=== PATIENT | male | born 1965 | race Hispanic/Latino ===

== ENCOUNTER 2018-04-28 10:17 | Inpatient (IN) | payer OTHER ==
[2018-04-28] VITALS (7 sets, daily range): BP systolic 136–161; BP diastolic 78–105
[~2018-04-28] VITALS: Ht 162.6 cm; Wt 75.9 kg
[2018-04-28] MEDS ORDERED: ASPIRIN 325 MG TABLET ONE (10:19)
[2018-04-28 10:40] LABS: BASOPHILS % (AUTO) 0.7 % (0.0-5.0); EOSINOPHILS % (AUTO) 1.4 % (0.0-8.0); HEMATOCRIT 41.4 % (42-54); LYMPHOCYTES % (AUTO) 29.6 % (21.0-51.0); MEAN CORPUSCULAR HEMOGLOBIN 30.2 pg (27.0-33.0); MEAN CORPUSCULAR HGB CONC 34.6 g/dL (32.0-36.0); MEAN CORPUSCULAR VOLUME 87.3 fL (79-99); MONOCYTES % (AUTO) 4.4 % (3.0-13.0); NEUTROPHILS % (AUTO) 63.9 % (40.0-77.0); PLATELET COUNT (AUTO) 310 K/uL (130-400); RED BLOOD CELL COUNT(AUTO) 4.75 MIL/uL (4.50-6.20); WHITE BLOOD COUNT (AUTO) 7.4 K/uL (4.8-10.8)
[2018-04-28 11:01] LABS: CREATININE 0.8 mg/dL (0.5-1.5); POTASSIUM 3.4 mmol/L (3.5-5.1)
[2018-04-28 11:02] LABS: INR 0.95 (0.85-1.15)
[2018-04-28 11:12] LABS: ALBUMIN 3.1 g/dL (3.5-5.0); BILIRUBIN,TOTAL 0.5 mg/dL (0.2-1.0); TOTAL PROTEIN, SERUM 6.5 g/dL (6.0-8.3)
[2018-04-28 11:38] LABS: AMPHET/METH SCREEN,URINE NEGATIVE (NEGATIVE); BARBITURATE SCREEN, URINE NEGATIVE (NEGATIVE); BENZODIAZEPINES SCREEN,URINE NEGATIVE (NEGATIVE); CANNABINOID SCREEN,URINE NEGATIVE (NEGATIVE); COCAINE SCREEN,URINE NEGATIVE (NEGATIVE); OPIATE SCREEN,URINE NEGATIVE (NEGATIVE); PHENCYCLIDINE SCREEN,URINE NEGATIVE (NEGATIVE)
[2018-04-28] MEDS ORDERED: PHENYLEPHRINE HCL 10 MG/ML 1ML VIAL IV ONE (12:00)
[2018-04-28] MEDS ORDERED: HEPARIN SODIUM 10000 UNIT/ML 1ML VIAL IJ ONE (12:00)
[2018-04-28] MEDS ORDERED: NITROGLYCERIN 1GM/1 INCH PACKET TD ONE (13:34)
[2018-04-28] MEDS ORDERED: METOPROLOL TARTRATE 1 MG/ML 5ML VIAL IV ONE (14:05)
[2018-04-28] MEDS ORDERED: SODIUM CHLORIDE 0.9% 500ML 500 ML IV SCH (14:30)
[2018-04-28] MEDS ORDERED: FAMOTIDINE/PF 20 MG/2 ML VIAL IV ONE (14:51)
[2018-04-28] MEDS ORDERED: HEPARIN SODIUM 5000UNIT/ML 1ML VIAL ONE (15:01)
[2018-04-28] MEDS ORDERED: NITROGLYCERIN 5 MG/ML 10 ML VIAL IV ONE (15:04)
[2018-04-28] MEDS ORDERED: IOHEXOL 350 MG/ML 100ML INFUS..BTL IV ONE (15:04)
[2018-04-28] MEDS ORDERED: IOHEXOL-350 50ML VIAL IV ONE (15:04)
[2018-04-28] MEDS ORDERED: HEPARIN SODIUM 1000UNIT/ML 10ML VIAL ONE (15:04)
[2018-04-28] MEDS ORDERED: LIDOCAINE HCL 2% 20ML ONE (15:04)
[2018-04-28] MEDS ORDERED: MIDAZOLAM HCL 1 MG/ML 2ML VIAL ONE ×2 (15:32→16:10)
[2018-04-28] MEDS ORDERED: HEPARIN 25000 UNITS/250 ML D5W 250 ML IV ONE (15:50)
[2018-04-28] MEDS ORDERED: HEPARIN 25000 UNITS/250 ML D5W 250 ML IV SCH (16:15)
[2018-04-28] MEDS ORDERED: ACETAMINOPHEN-CODEINE 300/30MG TAB PO PRN ×2 (16:15)
[2018-04-28] MEDS ORDERED: DEXTROSE 50%-WATER 50 ML DISP.SYRIN IV PRN (16:15)
[2018-04-28] MEDS ORDERED: GLUCAGON 1MG KIT 1 MG ML IM PRN (16:15)
[2018-04-28 17:41] LABS: BASOPHILS % (AUTO) 0.6 % (0.0-5.0); EOSINOPHILS % (AUTO) 0.9 % (0.0-8.0); HEMATOCRIT 38.1 % (42-54); LYMPHOCYTES % (AUTO) 35.7 % (21.0-51.0); MEAN CORPUSCULAR HEMOGLOBIN 30.6 pg (27.0-33.0); MEAN CORPUSCULAR HGB CONC 34.8 g/dL (32.0-36.0); MONOCYTES % (AUTO) 5.6 % (3.0-13.0); NEUTROPHILS % (AUTO) 57.2 % (40.0-77.0); PLATELET COUNT (AUTO) 297 K/uL (130-400); RED BLOOD CELL COUNT(AUTO) 4.34 MIL/uL (4.50-6.20); RED CELL DISTRIBUTION WIDTH 13.1 % (11.0-15.5)
[2018-04-28 18:09] LABS: TROPONIN I 0.23 ng/mL (0.00-0.06)
[2018-04-28] MEDS: NITROGLYCERIN 1GM/1 INCH PACKET TD SCH ×2 (18:26→23:54)
[2018-04-28] MEDS ORDERED: TEMAZEPAM 15 MG CAPSULE ONE (20:43)
[2018-04-28] MEDS: FAMOTIDINE/PF 20 MG/2 ML VIAL IV SCH (20:54)
[2018-04-28] MEDS ORDERED: TRAMADOL HCL 50 MG TABLET PO PRN (21:15)
[2018-04-28] MEDS ORDERED: TEMAZEPAM 15 MG CAPSULE PO ONE (21:15)
[2018-04-29] VITALS (32 sets, daily range): BP systolic 112–256; BP diastolic 67–128
[2018-04-29 03:43] LABS: HEMOGLOBIN A1C 5.6 % (4.0-6.0)
[2018-04-29 03:44] LABS: CREATININE 0.7 mg/dL (0.5-1.5); POTASSIUM 3.6 mmol/L (3.5-5.1)
[2018-04-29 03:46] LABS: INR 0.95 (0.85-1.15)
[2018-04-29 03:48] LABS: BASOPHILS % (AUTO) 0.2 % (0.0-5.0); EOSINOPHILS % (AUTO) 0.6 % (0.0-8.0); LYMPHOCYTES % (AUTO) 34.5 % (21.0-51.0); MEAN CORPUSCULAR HEMOGLOBIN 29.7 pg (27.0-33.0); MEAN CORPUSCULAR HGB CONC 33.9 g/dL (32.0-36.0); MEAN CORPUSCULAR VOLUME 87.5 fL (79-99); MONOCYTES % (AUTO) 6.5 % (3.0-13.0); NEUTROPHILS % (AUTO) 58.2 % (40.0-77.0); PLATELET COUNT (AUTO) 279 K/uL (130-400); RED BLOOD CELL COUNT(AUTO) 4.58 MIL/uL (4.50-6.20); RED CELL DISTRIBUTION WIDTH 13.4 % (11.0-15.5); WHITE BLOOD COUNT (AUTO) 11.2 K/uL (4.8-10.8)
[2018-04-29] MEDS: NITROGLYCERIN 1GM/1 INCH PACKET TD SCH (05:36)
[2018-04-29] MEDS: FAMOTIDINE/PF 20 MG/2 ML VIAL IV SCH ×2 (05:45→21:06)
[2018-04-29] MEDS ORDERED: ONDANSETRON HCL 4 MG/2 ML VIAL ONE (06:40)
[2018-04-29] MEDS ORDERED: ONDANSETRON HCL 4 MG/2 ML VIAL IVP PRN (06:45)
[2018-04-29] MEDS ORDERED: ENOXAPARIN SODIUM 40 MG/0.4 ML SYRINGE SQ SCH (09:00)
[2018-04-29] MEDS: PANTOPRAZOLE SODIUM 40 MG TABLET.DR PO SCH (09:00)
[2018-04-29] MEDS ORDERED: METOPROLOL TARTRATE 1 MG/ML 5ML VIAL IV ONE (09:41)
[2018-04-29] MEDS ORDERED: METOPROLOL TARTRATE 1 MG/ML 5ML VIAL IV SCH (09:45)
[2018-04-29] MEDS ORDERED: CEFUROXIME SODIUM 750 MG/VIAL IVP PRN (10:00)
[2018-04-29] MEDS ORDERED: EPINEPHRINE 1 MG/ML 30ML VIAL IJ ONE (10:01)
[2018-04-29] MEDS ORDERED: PAPAVERINE HCL 30 MG/ML 2ML VIAL ONE (10:01)
[2018-04-29] MEDS ORDERED: OCTYL 2-CYANOACRYLATE 1 EACH TP ONE (10:01)
[2018-04-29] MEDS ORDERED: NITROGLYCERIN 50 MG/D5% WATER 1 BOT ONE ×2 (10:02→15:06)
[2018-04-29] MEDS ORDERED: BACITRACIN 50,000 UNIT VIAL ONE (10:02)
[2018-04-29] MEDS ORDERED: AMIODARONE HCL 50 MG/ML 3 ML VIAL ONE (10:06)
[2018-04-29] MEDS ORDERED: SODIUM BICARB 50MEQ 50ML VIAL ONE ×3 (10:06→14:15)
[2018-04-29] MEDS ORDERED: SODIUM CHLORIDE 0.9% 1000ML 1,000 ML IV ONE (10:13)
[2018-04-29] MEDS ORDERED: HEPARIN SODIUM 1000UNIT/ML 10ML VIAL ONE (12:14)
[2018-04-29] MEDS ORDERED: FENTANYL CITRATE PF 50 MCG/1 ML 20ML VIAL IJ ONE (12:14)
[2018-04-29] MEDS ORDERED: NOREPINEPHRINE BITARTRATE 1 MG/1 ML ML IV ONE (12:14)
[2018-04-29] MEDS ORDERED: EPINEPHRINE 1 MG/ML AMPULE ONE (12:14)
[2018-04-29] MEDS ORDERED: PROTAMINE SULFATE 10 MG/ML 25ML VIAL IV ONE (12:14)
[2018-04-29] MEDS ORDERED: PROPOFOL 10 MG/ML 20ML VIAL IV ONE (12:14)
[2018-04-29] MEDS ORDERED: LIDOCAINE PF 2% 5ML ABBOJECT ONE (12:14)
[2018-04-29] MEDS ORDERED: AMINOCAPROIC ACID 250 MG/ML 20 ML VIAL IV ONE (12:14)
[2018-04-29] MEDS ORDERED: ESMOLOL HCL 10 MG/ML 10 ML VIAL ONE (12:14)
[2018-04-29] MEDS ORDERED: MIDAZOLAM HCL 1 MG/ML 5ML VIAL ONE (12:15)
[2018-04-29] MEDS ORDERED: KETAMINE 50MG/ML SYRINGE 50 MG/ML DISP.SYRIN IV ONE (12:16)
[2018-04-29] MEDS ORDERED: ROCURONIUM 10MG/1ML SYR 10 MG/ML ML ONE (12:17)
[2018-04-29 12:41] LABS: ABG BASE EXCESS -0.4 mmol/L (-2.0-3.0); ABG HCO3 23.5 mmol/L (21.0-28.0); ABG OXYGEN SATURATION 99.2 % (95.0-99.0); ABG PCO2 36 mmHg (35-48)
[2018-04-29] MEDS ORDERED: CEFUROXIME SODIUM 1.5 GM VIAL ONE (12:52)
[2018-04-29] MEDS ORDERED: THROMBIN-JMI 5000 UNIT/VIAL TP ONE (13:14)
[2018-04-29] MEDS ORDERED: GLYCOPYRROLATE 1 MG/5 ML SYRINGE ONE (13:30)
[2018-04-29] MEDS ORDERED: SODIUM CHLORIDE 0.9% 500ML 500 ML IV SCH (13:39)
[2018-04-29] MEDS ORDERED: NITROGLYCERIN 50 MG/D5% WATER 250 BOT IV SCH (13:45)
[2018-04-29] MEDS ORDERED: NOREPINEPHRINE 4MG/NS 250ML 250 ML IV PRN (13:45)
[2018-04-29] MEDS ORDERED: GLUCAGON 1MG KIT 1 MG ML IM PRN (13:45)
[2018-04-29] MEDS ORDERED: SODIUM CHLORIDE 0.9% 1000ML 1,000 ML IV SCH (13:45)
[2018-04-29] MEDS ORDERED: ACETAMINOPHEN 650 MG SUPPOSITORY RC PRN (13:45)
[2018-04-29] MEDS ORDERED: AMINOCAPROIC ACID 15,000 MG in SODIUM CHLORIDE 0.9% 250 ML IV SCH (13:45)
[2018-04-29] MEDS ORDERED: MORPHINE SULFATE 4 MG/1ML SYG IV PRN (13:45)
[2018-04-29] MEDS ORDERED: POTASSIUM PHOS 15 mMOL+NS250ML 250 ML IV PRN (13:45)
[2018-04-29] MEDS ORDERED: SODIUM CHLORIDE 0.9% 250 ML IV PRN (13:45)
[2018-04-29] MEDS ORDERED: MORPHINE SULFATE 2 MG/ML 1ML SYG IV PRN (13:45)
[2018-04-29] MEDS ORDERED: ACETAMINOPHEN 325 MG TAB PO PRN ×2 (13:45)
[2018-04-29] MEDS ORDERED: INSULIN REGULAR, HUMAN 3ML 100 UNIT in SODIUM CHLORIDE 0.9% 99 ML IV SCH ×2 (13:45)
[2018-04-29] MEDS ORDERED: DEXTROSE 50%-WATER 50 ML DISP.SYRIN IV PRN (13:45)
[2018-04-29] MEDS ORDERED: PROPOFOL 1000 MG/100 ML 100 ML IV PRN (13:45)
[2018-04-29] MEDS ORDERED: EPINEPHRINE 8 MG in SODIUM CHLORIDE 0.9% 250 ML IV PRN (13:45)
[2018-04-29] MEDS ORDERED: ALBUMIN (HUMAN) 5% 250 ML IV PRN (13:45)
[2018-04-29] MEDS ORDERED: CALCIUM GLUCONATE 1 GM in SODIUM CHLORIDE 0.9% 50 ML IV PRN (13:45)
[2018-04-29] MEDS ORDERED: SODIUM BICARB 50MEQ 50ML VIAL IV PRN (13:45)
[2018-04-29] MEDS ORDERED: METHYLPREDNISOLONE SOD SUCC 125MG/2ML VIAL ONE (14:00)
[2018-04-29 14:12] LABS: ABG BASE EXCESS -7.8 mmol/L (-2.0-3.0); ABG HCO3 18.1 mmol/L (21.0-28.0); ABG PCO2 39 mmHg (35-48)
[2018-04-29] MEDS ORDERED: MORPHINE SULFATE 10 MG/ML 1ML SYG ONE (14:56)
[2018-04-29] MEDS ORDERED: LABETALOL HCL 5 MG/ML 20ML VIAL IV ONE (14:56)
[2018-04-29 15:12] LABS: HEMATOCRIT 36.7 % (42-54); MEAN CORPUSCULAR HEMOGLOBIN 29.7 pg (27.0-33.0); MEAN CORPUSCULAR HGB CONC 34.1 g/dL (32.0-36.0); MEAN CORPUSCULAR VOLUME 87.1 fL (79-99); NUCLEATED RED BLOOD CELLS 0.1 % (0.0-0.19); PLATELET COUNT (AUTO) 257 K/uL (130-400); RED BLOOD CELL COUNT(AUTO) 4.21 MIL/uL (4.50-6.20); RED CELL DISTRIBUTION WIDTH 13.1 % (11.0-15.5); WHITE BLOOD COUNT (AUTO) 22.6 K/uL (4.8-10.8)
[2018-04-29 15:31] LABS: MAGNESIUM 1.4 mg/dL (1.80-2.40); PHOSPHORUS 4.2 mg/dL (2.5-4.9); POTASSIUM 3.5 mmol/L (3.5-5.1)
[2018-04-29 15:39] LABS: ABG BASE EXCESS -1.9 mmol/L (-2.0-3.0); ABG HCO3 24.3 mmol/L (21.0-28.0); ABG OXYGEN SATURATION 91.1 % (95.0-99.0); ABG PCO2 47 mmHg (35-48)
[2018-04-29] MEDS: POTASSIUM CHLORIDE 20MEQ/100ML 100 ML IV PRN (15:46)
[2018-04-29] MEDS: MAGNESIUM 2GM PREMIX 50ML 50 ML IV PRN ×2 (15:47→17:49)
[2018-04-29 17:46] LABS: MAGNESIUM 1.7 mg/dL (1.80-2.40); POTASSIUM 4.1 mmol/L (3.5-5.1)
[2018-04-29] MEDS: KETOROLAC TROMETHAMINE 30MG/ML IV SCH (17:49)
[2018-04-29] MEDS: ONDANSETRON HCL 4 MG/2 ML VIAL IV PRN (19:15)
[2018-04-29] MEDS: TRAMADOL HCL 50 MG TABLET PO PRN (21:13)
[2018-04-29] MEDS: SODIUM CHLORIDE 0.9% 10 ML VIAL IVP PRN (22:14)
[2018-04-29] MEDS: CEFUROXIME SODIUM 1.5 GM VIAL IVP SCH (22:14)
[2018-04-29] MEDS ORDERED: METOPROLOL TARTRATE 25 MG TAB ONE (22:44)
[2018-04-29] MEDS: METOPROLOL TARTRATE 25 MG TAB PO SCH (23:33)
[2018-04-30] VITALS (36 sets, daily range): BP systolic 108–178; BP diastolic 56–100
[2018-04-30] MEDS: KETOROLAC TROMETHAMINE 30MG/ML IV SCH ×4 (00:03→17:35)
[2018-04-30] MEDS: TRAMADOL HCL 50 MG TABLET PO PRN ×3 (04:09→20:58)
[2018-04-30 04:15] LABS: HEMATOCRIT 33.1 % (42-54); MEAN CORPUSCULAR HEMOGLOBIN 29.1 pg (27.0-33.0); MEAN CORPUSCULAR HGB CONC 33.3 g/dL (32.0-36.0); MEAN CORPUSCULAR VOLUME 87.2 fL (79-99); PLATELET COUNT (AUTO) 227 K/uL (130-400); RED BLOOD CELL COUNT(AUTO) 3.79 MIL/uL (4.50-6.20); RED CELL DISTRIBUTION WIDTH 12.9 % (11.0-15.5); WHITE BLOOD COUNT (AUTO) 18.6 K/uL (4.8-10.8)
[2018-04-30 04:22] LABS: PARTIAL THROMBOPLASTIN TIME 26.4 SEC (26.3-35.5); PROTHROMBIN TIME 10.5 SEC (9.6-11.6)
[2018-04-30 04:37] LABS: CREATININE 0.9 mg/dL (0.5-1.5); MAGNESIUM 1.7 mg/dL (1.80-2.40); POTASSIUM 3.9 mmol/L (3.5-5.1)
[2018-04-30] MEDS: POTASSIUM CHLORIDE 20MEQ/100ML 100 ML IV PRN (05:24)
[2018-04-30] MEDS: MAGNESIUM 2GM PREMIX 50ML 50 ML IV PRN (05:24)
[2018-04-30] MEDS: ASPIRIN 81MG TAB.CHEW PO SCH (07:48)
[2018-04-30] MEDS: FAMOTIDINE/PF 20 MG/2 ML VIAL IV SCH ×2 (07:48→20:58)
[2018-04-30] MEDS: PANTOPRAZOLE SODIUM 40 MG TABLET.DR PO SCH (07:48)
[2018-04-30] MEDS: ATORVASTATIN CALCIUM 40 MG TABLET PO SCH ×2 (07:48→20:54)
[2018-04-30] MEDS: LOSARTAN 50 MG TABLET PO SCH (07:48)
[2018-04-30] MEDS: SODIUM CHLORIDE 0.9% 10 ML VIAL IVP PRN ×2 (09:26→20:55)
[2018-04-30] MEDS: CEFUROXIME SODIUM 1.5 GM VIAL IVP SCH ×2 (09:26→20:55)
[2018-04-30] MEDS: METOPROLOL TARTRATE 25 MG TAB PO SCH ×3 (10:02→20:56)
[2018-04-30] MEDS: FUROSEMIDE 10 MG/ML 2ML VIAL IV SCH ×2 (11:45→20:55)
[2018-04-30] MEDS: ONDANSETRON HCL 4 MG/2 ML VIAL IV PRN (14:19)
[2018-04-30] MEDS: POTASSIUM CHLORIDE 20 MEQ ERTAB PO SCH (20:54)
[2018-05-01] VITALS (23 sets, daily range): BP systolic 100–150; BP diastolic 56–93
[2018-05-01] MEDS: KETOROLAC TROMETHAMINE 30MG/ML IV SCH ×4 (00:49→17:51)
[2018-05-01 05:38] LABS: HEMATOCRIT 30.6 % (42-54); MEAN CORPUSCULAR HEMOGLOBIN 30.1 pg (27.0-33.0); MEAN CORPUSCULAR HGB CONC 33.9 g/dL (32.0-36.0); MEAN CORPUSCULAR VOLUME 88.8 fL (79-99); PLATELET COUNT (AUTO) 199 K/uL (130-400); RED BLOOD CELL COUNT(AUTO) 3.44 MIL/uL (4.50-6.20); RED CELL DISTRIBUTION WIDTH 13.3 % (11.0-15.5); WHITE BLOOD COUNT (AUTO) 14.4 K/uL (4.8-10.8)
[2018-05-01 06:14] LABS: CREATININE 0.8 mg/dL (0.5-1.5); MAGNESIUM 2.1 mg/dL (1.80-2.40)
[2018-05-01] MEDS: FAMOTIDINE/PF 20 MG/2 ML VIAL IV SCH ×2 (09:00→20:02)
[2018-05-01] MEDS: PANTOPRAZOLE SODIUM 40 MG TABLET.DR PO SCH (09:12)
[2018-05-01] MEDS: LOSARTAN 50 MG TABLET PO SCH (09:13)
[2018-05-01] MEDS: METOPROLOL TARTRATE 25 MG TAB PO SCH ×3 (09:13→22:45)
[2018-05-01] MEDS: POTASSIUM CHLORIDE 20 MEQ ERTAB PO SCH ×2 (09:14→20:01)
[2018-05-01] MEDS: ASPIRIN 81MG TAB.CHEW PO SCH (09:16)
[2018-05-01] MEDS: FUROSEMIDE 10 MG/ML 2ML VIAL IV SCH ×2 (09:16→20:02)
[2018-05-01] MEDS: ATORVASTATIN CALCIUM 40 MG TABLET PO SCH (20:02)
[2018-05-01] MEDS: TRAMADOL HCL 50 MG TABLET PO PRN (20:08)
[2018-05-01] MEDS ORDERED: FAMOTIDINE 20MG TAB 20 MG TAB PO SCH (21:30)
[2018-05-01] MEDS: FUROSEMIDE 20 MG TABLET PO SCH (21:30)
[2018-05-02] VITALS (8 sets, daily range): BP systolic 123–158; BP diastolic 61–99
[2018-05-02] MEDS: TRAMADOL HCL 50 MG TABLET PO PRN ×3 (00:45→20:36)
[2018-05-02 03:48] LABS: BASOPHILS % (AUTO) 0.4 % (0.0-5.0); EOSINOPHILS % (AUTO) 0.3 % (0.0-8.0); HEMATOCRIT 30.9 % (42-54); LYMPHOCYTES % (AUTO) 25.4 % (21.0-51.0); MEAN CORPUSCULAR HEMOGLOBIN 29.3 pg (27.0-33.0); MEAN CORPUSCULAR VOLUME 88.9 fL (79-99); MONOCYTES % (AUTO) 6.4 % (3.0-13.0); NEUTROPHILS % (AUTO) 67.5 % (40.0-77.0); NUCLEATED RED BLOOD CELLS 0.1 % (0.0-0.19); PLATELET COUNT (AUTO) 189 K/uL (130-400); RED BLOOD CELL COUNT(AUTO) 3.47 MIL/uL (4.50-6.20); RED CELL DISTRIBUTION WIDTH 12.9 % (11.0-15.5); WHITE BLOOD COUNT (AUTO) 12.4 K/uL (4.8-10.8)
[2018-05-02 04:00] LABS: % IRON SATURATION 9.6 % (30-44)
[2018-05-02 04:03] LABS: ALBUMIN 2.6 g/dL (3.5-5.0); BILIRUBIN,TOTAL 0.9 mg/dL (0.2-1.0); TOTAL PROTEIN, SERUM 6.3 g/dL (6.0-8.3)
[2018-05-02] MEDS: ENOXAPARIN SODIUM 40 MG/0.4 ML SYRINGE SQ SCH (08:57)
[2018-05-02] MEDS: ASPIRIN 81MG TAB.CHEW PO SCH (08:58)
[2018-05-02] MEDS: POTASSIUM CHLORIDE 20 MEQ ERTAB PO SCH ×2 (08:58→20:36)
[2018-05-02] MEDS: CLOPIDOGREL BISULFATE 75 MG TAB PO SCH (08:58)
[2018-05-02] MEDS: LOSARTAN 50 MG TABLET PO SCH (08:59)
[2018-05-02] MEDS: PANTOPRAZOLE SODIUM 40 MG TABLET.DR PO SCH (08:59)
[2018-05-02] MEDS: METOPROLOL TARTRATE 25 MG TAB PO SCH ×3 (09:00→20:37)
[2018-05-02] MEDS: FUROSEMIDE 20 MG TABLET PO SCH ×2 (09:00→20:37)
[2018-05-02] MEDS: ONDANSETRON HCL 4 MG/2 ML VIAL IV PRN (17:07)
[2018-05-02] MEDS: ATORVASTATIN CALCIUM 40 MG TABLET PO SCH (21:17)
[2018-05-03] VITALS (9 sets, daily range): BP systolic 136–189; BP diastolic 78–121
[2018-05-03] MEDS: TRAMADOL HCL 50 MG TABLET PO PRN ×3 (00:42→20:13)
[2018-05-03] MEDS ORDERED: METOPROLOL TARTRATE 25 MG TAB ONE (04:36)
[2018-05-03] MEDS ORDERED: METOPROLOL TARTRATE 25 MG TAB PO SCH (05:00)
[2018-05-03] MEDS ORDERED: CLOP75TA14 PO (06:54)
[2018-05-03] MEDS ORDERED: LOSA50TA2 PO (06:54)
[2018-05-03] MEDS ORDERED: METO-391 PO (06:54)
[2018-05-03] MEDS ORDERED: ATOR40TA69 PO (06:54)
[2018-05-03] MEDS ORDERED: ASPI-1005 PO (06:54)
[2018-05-03] MEDS ORDERED: LOSARTAN 50 MG TABLET PO SCH (09:00)
[2018-05-03] MEDS: PANTOPRAZOLE SODIUM 40 MG TABLET.DR PO SCH (09:37)
[2018-05-03] MEDS: METOPROLOL TARTRATE 25 MG TAB PO SCH ×2 (09:37→20:08)
[2018-05-03] MEDS: CLOPIDOGREL BISULFATE 75 MG TAB PO SCH (09:37)
[2018-05-03] MEDS: LOSARTAN 100 MG TABLET PO SCH (09:37)
[2018-05-03] MEDS: POTASSIUM CHLORIDE 20 MEQ ERTAB PO SCH ×2 (09:37→20:09)
[2018-05-03] MEDS: FUROSEMIDE 20 MG TABLET PO SCH ×2 (09:37→17:33)
[2018-05-03] MEDS: ENOXAPARIN SODIUM 40 MG/0.4 ML SYRINGE SQ SCH (09:38)
[2018-05-03] MEDS: ASPIRIN 81MG TAB.CHEW PO SCH (09:39)
[2018-05-03] MEDS ORDERED: AMLODIPINE BESYLATE 5 MG TAB PO SCH (16:45)
[2018-05-03] MEDS: ATORVASTATIN CALCIUM 40 MG TABLET PO SCH (20:08)
[2018-05-03] MEDS ORDERED: HYDRALAZINE HCL 20 MG/ML VIAL IV PRN (23:45)
[2018-05-04] MEDS ORDERED: AMLODIPINE BESYLATE 5 MG TAB PO ONE (00:47)
[2018-05-04] MEDS ORDERED: ALPRAZOLAM 0.25 MG TABLET ONE (02:11)
[2018-05-04] MEDS ORDERED: ALPRAZOLAM 0.25 MG TABLET PO ONE (02:15)
[2018-05-04 03:45] VITALS: BP 139/96
[2018-05-04 07:00] VITALS: BP 150/89
[2018-05-04] MEDS: PANTOPRAZOLE SODIUM 40 MG TABLET.DR PO SCH (08:18)
[2018-05-04] MEDS: ASPIRIN 81MG TAB.CHEW PO SCH (08:18)
[2018-05-04] MEDS: LOSARTAN 100 MG TABLET PO SCH (08:18)
[2018-05-04] MEDS: METOPROLOL TARTRATE 25 MG TAB PO SCH (08:18)
[2018-05-04] MEDS: CLOPIDOGREL BISULFATE 75 MG TAB PO SCH (08:18)
[2018-05-04] MEDS: POTASSIUM CHLORIDE 20 MEQ ERTAB PO SCH (08:21)
[2018-05-04] MEDS: ENOXAPARIN SODIUM 40 MG/0.4 ML SYRINGE SQ SCH (08:22)
[2018-05-04] MEDS: FUROSEMIDE 20 MG TABLET PO SCH (08:24)
[2018-05-04] MEDS ORDERED: AMLODIPINE BESYLATE 5 MG TAB PO SCH ×2 (09:00)
[2018-05-04 11:00] VITALS: BP 152/81
[2018-05-04 16:00] VITALS: BP 122/83
[2018-05-04] MEDS: TRAMADOL HCL 50 MG TABLET PO PRN (16:31)
== END 2018-05-04 17:50 | disposition home or self-care (01) | DRG 233 ==
LOC: EDH 10:17 → EDHIP 10:18 → 2DH 16:31 → 2CV 04-29 10:14 → 2BH 04-30 17:10 → 2DH 05-02 17:59
PROVIDERS: ADMIT Family Medicine; ATTEND Family Medicine
PROC: 4A023N7 Measurement of Cardiac Sampling and Pressure, Left Heart, Percutaneous Approach (ICD-10-PCS; principal; 2018-04-28)
PROC: B2111ZZ Fluoroscopy of Multiple Coronary Arteries using Low Osmolar Contrast (ICD-10-PCS; 2018-04-28)
PROC: B2151ZZ Fluoroscopy of Left Heart using Low Osmolar Contrast (ICD-10-PCS; 2018-04-28)
PROC: 021109W Bypass Coronary Artery, Two Arteries from Aorta with Autologous Venous Tissue, Open Approach (ICD-10-PCS; 2018-04-29)
PROC: 06BQ4ZZ Excision of Left Saphenous Vein, Percutaneous Endoscopic Approach (ICD-10-PCS; 2018-04-29)
PROC: 02100Z9 Bypass Coronary Artery, One Artery from Left Internal Mammary, Open Approach (ICD-10-PCS; 2018-04-29 12:18)
DX: I25.110 Atherosclerotic heart disease of native coronary artery with unstable angina pectoris (principal); I21.4 Non-ST elevation (NSTEMI) myocardial infarction; D62 Acute posthemorrhagic anemia; J98.11 Atelectasis; I10 Essential (primary) hypertension; E78.5 Hyperlipidemia, unspecified; E87.6 Hypokalemia; E87.70 Fluid overload, unspecified; F17.210 Nicotine dependence, cigarettes, uncomplicated; Z79.02 Long term (current) use of antithrombotics/antiplatelets; Z87.442 Personal history of urinary calculi; Z82.49 Family history of ischemic heart disease and other diseases of the circulatory system
CPT/HCPCS: 36415; 71045; 71046; 80048; 80053; 80305; 82330; 82435; 82550; 82803; 82947; 82948; 83036; 83540; 83550; 83605; 83735; 83874; 84100; 84132; 84295; 84484; 85018; 85025; 85027; 85347; 85610; 85730; 86850; 86900; 86901; 86922; 93005; 93458; 93880; 94002; 97039; 99156; 99157; A7048; C1763; C1894; J0171; J0282; J0610; J0697; J1644; J1650; J1815; J1885; J1940; J2001; J2250; J2270; J2370; J2405; J2440; J2704; J2720; J2930; J3010; J3475; J3480; J3490; J7030; J7040; Q9967